=== PATIENT | male | born 1950 | race Caucasian/White ===

== ENCOUNTER 2024-08-15 04:32 | Emergency (ER) | payer OTHER, SELFPAY ==
[2024-08-15] VITALS (9 sets, daily range): BP systolic 80–152; BP diastolic 39–88; PULSE 67–99; RESP 11–24; TEMP 35; O2SAT 89–98; BMI 30.1
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
[2024-08-15 04:50] LABS: Glucose Point of Care > 600 mg/dL (70-110)
[2024-08-15 04:50] LABS: Basophils # 0.1 10^3/uL (0.0-0.1); Basophils % 0.4 %; Eosinophils # 0.1 10^3/uL (0.0-0.8); Eosinophils % 0.5 %; Hematocrit 34.5 % (37-53); Lymphocytes # 1.2 10^3/uL (0.8-4.8); Lymphocytes % 8.9 %; Mean Corpuscular HGB Conc 32.5 g/dL (30-55); Mean Corpuscular Volume 95.6 fl (82-101); Mean Platelet Volume 9.7 fL (7.4-10.4); Monocytes # 0.8 10^3/uL (0.2-0.9); Monocytes % 6.2 %; Neutrophils % 82.9 %; Nucleated Red Blood Cells % 0 %; Platelet Count 229 10^3/cmm (157-399); Red Blood Count 3.61 10^6/uL (3.85-5.65); Red Cell Distribution Width 12.3 % (12.1-15.1); White Blood Count 13.14 10^3/uL (3.29-11.43)
[2024-08-15 05:00] LABS: INR 1.03 (0.8-1.2)
[2024-08-15 05:08] LABS: Alanine Aminotransferase 23 U/L (0-41); Albumin Level 3.4 g/dL (3.5-5.2); Alkaline Phosphatase 102 U/L (40-130); Anion Gap 15.9 (5-19); Aspartate Amino Transferase 33 U/L (0-40); Blood Urea Nitrogen 31 mg/dL (8-23); Calcium 8.3 mg/dL (8.5-10.5); Carbon Dioxide 23 mmol/L (22-29); Chloride 98 mmol/L (98-107); Creatinine Clr Calc Pharmacy 63.0883; Globulin 2.8 g/dL (1.3-4.6); Osmolality Calculated 314 mOsm/kg (285-295); Potassium 5.9 mmol/L (3.5-5.1); Sodium 131 mmol/L (136-145); Total Bilirubin 0.4 mg/dL (0.15-1.2); Total Protein 6.2 g/dL (6.6-8.7)
[2024-08-15 05:13] LABS: Alcohol Level < 10 mg/dL (0-10)
[2024-08-15 05:15] LABS: Glucose 744 mg/dL (65-115)
--- NOTE | 2024-08-15 05:17 | ECG_ITS ---
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 Measurements Intervals [place] Rate: 90 P: 38 MS: 168 QRS: -36 QRSD: 89 T: 22 QT: 406 QTc: 497 Interpretive Statements SINUS RHYTHM LEFT AXIS DEVIATION [QRS AXIS < -30] PATTERN CONSISTENT WITH PULMONARY DISEASE MODERATE ST DEPRESSION [0.05+ mV ST DEPRESSION] No previous ECG available for comparison Electronically Signed On 08-15-2024 08:30:28 CDT by Yessi Pino M.D. [email or web address]
[2024-08-15] MEDS: morphine 4 mg/mL SDV 1 mL IVP (05:26)
[2024-08-15] MEDS: ondansetron 2 mg/ML SDV 2 mL 4 MG IVP ×2 (05:26→06:08)
[2024-08-15] MEDS: sodium chloride 0.9% 1,000 ML 999 ML IV ×2 (05:26)
[2024-08-15] MEDS: insulin regular-human 100 units/1 mL 15 UNIT IVP (05:31)
[2024-08-15] MEDS: LORazepam 2 mg/mL INJ 1 mL 1 MG IVP (05:48)
== END 2024-08-15 06:20 | disposition short-term general hospital (02) ==
PROVIDERS: Emergency Provider Emergency Medicine
DX: I62.00 Nontraumatic subdural hemorrhage, unspecified (principal); S22.32XA Fracture of one rib, left side, initial encounter for closed fracture; S32.019A Unspecified fracture of first lumbar vertebra, initial encounter for closed fracture; V89.2XXA Person injured in unspecified motor-vehicle accident, traffic, initial encounter
CPT/HCPCS: 36416; 70450; 71045; 71260; 74177; 80053; 80307; 82962; 85025; 85610; 86850; 86900; 93005; 96374; 96375; 96376; 99285; 99291; 99292; J1815; J2060; J2270; J2405; J7030